=== PATIENT | male | born 1985 | race Hispanic/Latino ===

== ENCOUNTER 2022-10-13 10:50 | Inpatient (IN) | payer SELFPAY ==
[2022-10-13 11:32] LABS: Hemoglobin 13.8 g/dL (14.0-18.0); Mean Corpuscular HGB CONC 34.9 g/dL (32.0-36.0); Mean Corpuscular Hemoglobin 32.9 pg (27.0-31.0); Mean Corpuscular Volume 94.1 fl (78.0-98.0); Mean Platelet Volume 7.8 fL (7.4-10.4); Platelet Count 201 10x3/uL (130-400); RBC Distribution Width 10.8 % (11.5-14.5); White Blood Cell (WBC) Count 14.9 10x3/uL (4.8-10.8)
[2022-10-13 11:43] LABS: ALT (SGPT) 18 U/L (8-55); AST (SGOT) 22 U/L (5-34); Albumin 4.1 g/dL (3.5-5.0); Alkaline Phosphatase 73 U/L (40-110); Anion Gap 12 mmol/L (10-20); BUN (Urea Nitrogen) 15 mg/dL (8.9-20.6); Bilirubin, Total 1.3 mg/dL (0.2-1.2); Calc. Creatinine Clearance 0 mL/min (70-130); Calcium 10.8 mg/dL (7.8-10.44); Carbon Dioxide 21 mmol/L (22-29); Chloride 101 mmol/L (98-107); Estimated GFR 62; Glucose 119 mg/dL (70-105); Lipase 28 U/L (8-78); Protein, Total 7.1 g/dL (6.0-8.3); Sodium 130 mmol/L (136-145)
[2022-10-13 11:51] LABS: Band 28 % (5-11); Lymphocytes 4 % (21-51); MDiff Complete? YES; Monocytes 7 % (0-10); Neutrophil 60 % (42-75); RBC Morphology Normal
[2022-10-13] MEDS ORDERED: Ondansetron PF 4 MG/2 ML Vial ONE ×2 (13:39→17:41)
[2022-10-13] MEDS ORDERED: HYDROmorphone 0.5 MG/0.5 ML SYRINGE ONE (13:41)
[2022-10-13 13:50] LABS: Bacteria/HPF 4+ HPF (None Seen); Bilirubin Negative (Negative); Blood, Urine 2+ (Negative); Clarity Turbid (Clear); Glucose, Urine (Dipstick) Normal (Negative); Ketone, Urine Negative (Negative); Leukocyte 500 Leu/uL (Negative); Nitrite Negative (Negative); Protein, Urine (Dipstick) 30 mg/dL (Neg-Trace); Specific Gravity, Urine 1.012 (1.002-1.036); Squamous Epithelial 0-3 HPF (0-3); Transitional Epithelial 0-3 HPF (None Seen); Urobilinogen Normal mg/dL (Less than 2); WBC/HPF Greater than 50 HPF (0-3); pH, Urine 5.5 (5.0-9.0)
[2022-10-13] MEDS ORDERED: cefTRIAXone\\ROCEPHIN 2 GM VIAL ONE (13:57)
[2022-10-13] MEDS ORDERED: Senokot S 8.6-50 MG TAB PO PRN ×2 (14:35→20:46)
[2022-10-13] MEDS ORDERED: HYDROcodone/Acetaminophen 5/325 mg Tablet PO PRN ×2 (14:35→20:46)
[2022-10-13] MEDS ORDERED: Ondansetron PF 4 MG/2 ML Vial IVP PRN ×2 (14:35→20:46)
[2022-10-13] MEDS ORDERED: Acetaminophen 325 MG TAB PO PRN (14:35)
[2022-10-13] MEDS ORDERED: Sodium Chloride 0.9% 1,000 ML IV SCH (14:45)
[2022-10-13] MEDS ORDERED: Morphine 4 MG/ML VIAL SLOW IVP PRN ×2 (14:49→20:47)
[2022-10-13] MEDS ORDERED: Acetaminophen 325 MG Suppository PR SCH (17:15)
[2022-10-13] MEDS ORDERED: Acetaminophen 650 MG Suppository PR SCH (17:15)
[2022-10-13] MEDS ORDERED: Iopamidol 30 ML ONE (17:16)
[2022-10-13] MEDS ORDERED: fentaNYL PF 100 MCG/2 ML SYRINGE ONE (17:16)
[2022-10-13] MEDS ORDERED: Lidocaine 1% PF 5 ML VIAL ONE (17:41)
[2022-10-13] MEDS ORDERED: Dexamethasone 20 MG/5 ML VIAL ONE (17:41)
[2022-10-13] MEDS ORDERED: Succinylcholine Chloride 100 MG/5 ML SYRINGE FS ONE (17:41)
[2022-10-13] MEDS ORDERED: PROPOFOL 200 MG/20 ML VIAL ONE (17:41)
[2022-10-13] MEDS ORDERED: HYDROmorphone 2 MG/ML VIAL SLOW IVP PRN (18:25)
[2022-10-13] MEDS ORDERED: Meperidine HCl/PF 25 MG/ML VIAL SLOW IVP PRN (18:25)
[2022-10-13] MEDS ORDERED: Promethazine HCl 25 MG/ML VIAL IM PRN (18:25)
[2022-10-13 20:05] VITALS: BMI 29.2
[2022-10-13] MEDS: Sodium Chloride 0.9% 1,000 ML IV SCH (20:53)
[2022-10-13] MEDS: Acetaminophen 325 MG TAB PO PRN (20:53)
[2022-10-13] MEDS: Famotidine 20 MG TAB PO SCH (20:53)
[2022-10-13] MEDS ORDERED: Famotidine 20 MG TAB PO SCH (21:00)
[2022-10-14] MEDS ORDERED: Sodium Chloride 0.9% 500 ML IV SCH (01:30)
[2022-10-14] MEDS: Sodium Chloride 0.9% 1,000 ML IV SCH ×3 (01:59→20:31)
[2022-10-14] MEDS: Famotidine 20 MG TAB PO SCH ×2 (07:46→20:30)
[2022-10-14 07:58] LABS: #Lymphocytes 0.9 thou/uL (1.20-3.40); #Monocytes 0.8 thou/uL (0.11-0.59); #Neutrophils 7.6 thou/uL (1.40-6.50); %Basophils 0.1 % (0.0-1.0); %Eosinophils 0.1 % (0.0-10.0); %Lymphocytes 9.5 % (21.0-51.0); %Monocytes 8.4 % (0.0-10.0); %Neutrophils 81.9 % (42.0-75.0); Hemoglobin 12.3 g/dL (14.0-18.0); Mean Corpuscular HGB CONC 34.2 g/dL (32.0-36.0); Mean Corpuscular Hemoglobin 33.4 pg (27.0-31.0); Mean Corpuscular Volume 97.7 fl (78.0-98.0); Mean Platelet Volume 8.6 fL (7.4-10.4); Platelet Count 170 10x3/uL (130-400); RBC Distribution Width 11.1 % (11.5-14.5); Red Blood Cell (RBC) Count 3.69 mill/uL (4.70-6.10); White Blood Cell (WBC) Count 9.2 10x3/uL (4.8-10.8)
[2022-10-14 08:03] LABS: Anion Gap 11 mmol/L (10-20); BUN (Urea Nitrogen) 14 mg/dL (8.9-20.6); Calc. Creatinine Clearance 121 mL/min (70-130); Calcium 10.1 mg/dL (7.8-10.44); Carbon Dioxide 21 mmol/L (22-29); Chloride 110 mmol/L (98-107); Estimated GFR 95; Glucose 138 mg/dL (70-105); Potassium 4.6 mmol/L (3.5-5.1); Sodium 137 mmol/L (136-145)
[2022-10-14] MEDS ORDERED: cefTRIAXone\\ROCEPHIN 2 GM in Sodium Chloride 0.9% 100 ML IVPB SCH (14:00)
[2022-10-14] MEDS: Phenazopyridine HCl 100 MG TAB PO SCH (17:49)
[2022-10-14] MEDS: Oxybutynin 5 MG TAB PO SCH (20:30)
[2022-10-14] MEDS ORDERED: Meropenem 1 GM in Sodium Chloride 0.9% 100 ML IVPB SCH (22:00)
[2022-10-15] MEDS: Sodium Chloride 0.9% 1,000 ML IV SCH ×3 (05:33→20:34)
[2022-10-15] MEDS: Meropenem 1 GM in Sodium Chloride 0.9% 100 ML IVPB SCH ×3 (05:34→22:22)
[2022-10-15 07:31] LABS: #Lymphocytes 1.3 thou/uL (1.20-3.40); #Monocytes 0.8 thou/uL (0.11-0.59); #Neutrophils 6.8 thou/uL (1.40-6.50); %Basophils 0.2 % (0.0-1.0); %Eosinophils 0.1 % (0.0-10.0); %Lymphocytes 14.6 % (21.0-51.0); %Monocytes 8.6 % (0.0-10.0); %Neutrophils 76.6 % (42.0-75.0); Hemoglobin 12.1 g/dL (14.0-18.0); Mean Corpuscular HGB CONC 34.2 g/dL (32.0-36.0); Mean Corpuscular Hemoglobin 33.3 pg (27.0-31.0); Mean Corpuscular Volume 97.4 fl (78.0-98.0); Mean Platelet Volume 8.4 fL (7.4-10.4); Platelet Count 187 10x3/uL (130-400); RBC Distribution Width 11.1 % (11.5-14.5); Red Blood Cell (RBC) Count 3.62 mill/uL (4.70-6.10); White Blood Cell (WBC) Count 8.9 10x3/uL (4.8-10.8)
[2022-10-15] MEDS: Oxybutynin 5 MG TAB PO SCH ×2 (07:51→20:34)
[2022-10-15] MEDS: Famotidine 20 MG TAB PO SCH ×2 (07:51→20:34)
[2022-10-15] MEDS: Phenazopyridine HCl 100 MG TAB PO SCH ×3 (07:51→17:59)
[2022-10-15 08:02] LABS: Anion Gap 10 mmol/L (10-20); BUN (Urea Nitrogen) 13 mg/dL (8.9-20.6); Calc. Creatinine Clearance 133 mL/min (70-130); Calcium 10.2 mg/dL (7.8-10.44); Carbon Dioxide 23 mmol/L (22-29); Chloride 109 mmol/L (98-107); Estimated GFR 106; Glucose 100 mg/dL (70-105); Potassium 3.9 mmol/L (3.5-5.1); Sodium 138 mmol/L (136-145)
[2022-10-15] MEDS: Acetaminophen 325 MG TAB PO PRN (19:41)
[2022-10-16] MEDS: Acetaminophen 325 MG TAB PO PRN (04:31)
[2022-10-16] MEDS: Sodium Chloride 0.9% 1,000 ML IV SCH ×3 (04:31→20:45)
[2022-10-16] MEDS: Meropenem 1 GM in Sodium Chloride 0.9% 100 ML IVPB SCH ×3 (05:09→22:59)
[2022-10-16] MEDS: Famotidine 20 MG TAB PO SCH ×2 (08:54→20:45)
[2022-10-16] MEDS: Oxybutynin 5 MG TAB PO SCH ×2 (08:54→20:45)
[2022-10-16] MEDS: Phenazopyridine HCl 100 MG TAB PO SCH ×3 (08:54→17:17)
[2022-10-16] MEDS ORDERED: FLU VACC QS2022-23(6MOS UP)/PF 60 MCG/0.5 ML SYRINGE IM ONE (09:00)
[2022-10-17] MEDS: Sodium Chloride 0.9% 1,000 ML IV SCH ×3 (03:36→20:52)
[2022-10-17 08:06] LABS: #Eosinphils 0.1 thou/uL (0.0-0.7); #Lymphocytes 1.5 thou/uL (1.20-3.40); #Monocytes 0.6 thou/uL (0.11-0.59); #Neutrophils 2.7 thou/uL (1.40-6.50); %Basophils 0.7 % (0.0-1.0); %Eosinophils 1.3 % (0.0-10.0); %Lymphocytes 30.4 % (21.0-51.0); %Monocytes 11.7 % (0.0-10.0); Hemoglobin 12.8 g/dL (14.0-18.0); Mean Corpuscular HGB CONC 33.4 g/dL (32.0-36.0); Mean Corpuscular Hemoglobin 32.6 pg (27.0-31.0); Mean Corpuscular Volume 97.7 fl (78.0-98.0); Mean Platelet Volume 7.6 fL (7.4-10.4); Platelet Count 214 10x3/uL (130-400); RBC Distribution Width 11.2 % (11.5-14.5); Red Blood Cell (RBC) Count 3.92 mill/uL (4.70-6.10); White Blood Cell (WBC) Count 4.9 10x3/uL (4.8-10.8)
[2022-10-17 08:26] LABS: Anion Gap 10 mmol/L (10-20); BUN (Urea Nitrogen) 9 mg/dL (8.9-20.6); Calc. Creatinine Clearance 137 mL/min (70-130); Calcium 10.3 mg/dL (7.8-10.44); Carbon Dioxide 24 mmol/L (22-29); Chloride 107 mmol/L (98-107); Estimated GFR 111; Glucose 101 mg/dL (70-105); Potassium 4.2 mmol/L (3.5-5.1); Sodium 137 mmol/L (136-145)
[2022-10-17] MEDS: Oxybutynin 5 MG TAB PO SCH ×2 (08:47→20:13)
[2022-10-17] MEDS: Phenazopyridine HCl 100 MG TAB PO SCH ×3 (08:47→17:28)
[2022-10-17] MEDS: Famotidine 20 MG TAB PO SCH ×2 (08:47→20:13)
[2022-10-17] MEDS: Meropenem 1 GM in Sodium Chloride 0.9% 100 ML IVPB SCH ×3 (09:23→22:11)
[2022-10-17] MEDS: Acetaminophen 325 MG TAB PO PRN (20:13)
[2022-10-18] MEDS: Sodium Chloride 0.9% 1,000 ML IV SCH ×2 (04:53→17:19)
[2022-10-18] MEDS: Meropenem 1 GM in Sodium Chloride 0.9% 100 ML IVPB SCH ×3 (05:21→21:10)
[2022-10-18 06:58] LABS: Anion Gap 8 mmol/L (10-20); BUN (Urea Nitrogen) 10 mg/dL (8.9-20.6); Calc. Creatinine Clearance 154 mL/min (70-130); Calcium 10.2 mg/dL (7.8-10.44); Carbon Dioxide 27 mmol/L (22-29); Chloride 108 mmol/L (98-107); Estimated GFR 117; Glucose 96 mg/dL (70-105); Potassium 4.6 mmol/L (3.5-5.1); Sodium 138 mmol/L (136-145)
[2022-10-18 07:00] LABS: Hemoglobin 12.8 g/dL (14.0-18.0); Mean Corpuscular HGB CONC 34.2 g/dL (32.0-36.0); Mean Corpuscular Hemoglobin 33.2 pg (27.0-31.0); Mean Corpuscular Volume 97.1 fl (78.0-98.0); Mean Platelet Volume 7.8 fL (7.4-10.4); Platelet Count 224 10x3/uL (130-400); RBC Distribution Width 11.3 % (11.5-14.5); Red Blood Cell (RBC) Count 3.84 mill/uL (4.70-6.10)
[2022-10-18] MEDS: Phenazopyridine HCl 100 MG TAB PO SCH ×3 (08:46→18:00)
[2022-10-18] MEDS: Famotidine 20 MG TAB PO SCH ×2 (08:46→21:09)
[2022-10-18] MEDS: Oxybutynin 5 MG TAB PO SCH ×2 (08:46→21:09)
[2022-10-18 09:01] LABS: Band 5 % (5-11); Lymphocytes 24 % (21-51); MDiff Complete? YES; Monocytes 17 % (0-10); Neutrophil 54 % (42-75); Platelet Morphology Comment Appears Adequate; RBC Morphology Normal
[2022-10-19] MEDS: Sodium Chloride 0.9% 1,000 ML IV SCH ×3 (01:56→16:25)
[2022-10-19] MEDS: Meropenem 1 GM in Sodium Chloride 0.9% 100 ML IVPB SCH ×2 (05:20→16:35)
[2022-10-19 07:46] LABS: #Eosinphils 0.1 thou/uL (0.0-0.7); #Monocytes 0.8 thou/uL (0.11-0.59); #Neutrophils 2.9 thou/uL (1.40-6.50); %Basophils 0.2 % (0.0-1.0); %Eosinophils 2.2 % (0.0-10.0); %Lymphocytes 33.9 % (21.0-51.0); %Monocytes 13.6 % (0.0-10.0); %Neutrophils 50.2 % (42.0-75.0); Hemoglobin 12.9 g/dL (14.0-18.0); Mean Corpuscular HGB CONC 34.3 g/dL (32.0-36.0); Mean Corpuscular Volume 96.5 fl (78.0-98.0); Mean Platelet Volume 7.6 fL (7.4-10.4); Platelet Count 271 10x3/uL (130-400); RBC Distribution Width 11.1 % (11.5-14.5); Red Blood Cell (RBC) Count 3.91 mill/uL (4.70-6.10); White Blood Cell (WBC) Count 5.8 10x3/uL (4.8-10.8)
[2022-10-19 08:09] LABS: Anion Gap 9 mmol/L (10-20); BUN (Urea Nitrogen) 10 mg/dL (8.9-20.6); Calc. Creatinine Clearance 158 mL/min (70-130); Calcium 10.1 mg/dL (7.8-10.44); Carbon Dioxide 25 mmol/L (22-29); Chloride 108 mmol/L (98-107); Estimated GFR 118; Glucose 99 mg/dL (70-105); Potassium 4.5 mmol/L (3.5-5.1); Sodium 137 mmol/L (136-145)
[2022-10-19] MEDS: Famotidine 20 MG TAB PO SCH (08:31)
[2022-10-19] MEDS: Phenazopyridine HCl 100 MG TAB PO SCH ×3 (08:31→16:35)
[2022-10-19] MEDS: Oxybutynin 5 MG TAB PO SCH (08:31)
[2022-10-19 20:00] VITALS: BP 136/74; TEMP 98.1
== END 2022-10-19 20:10 | disposition home or self-care (01) | DRG 854 ==
LOC: ERS 10:50 → T4-B 14:40 → SDC/OP 14:47 → T4-B 20:04 → OBSVTOIN 10-14 07:57
PROVIDERS: ADMIT Family Medicine; ATTEND Internal Medicine
PROC: 0T768DZ Dilation of Right Ureter with Intraluminal Device, Via Natural or Artificial Opening Endoscopic (ICD-10-PCS; principal; 2022-10-13)
PROC: 02HV33Z Insertion of Infusion Device into Superior Vena Cava, Percutaneous Approach (ICD-10-PCS; 2022-10-18)
PROC: B5181ZA Fluoroscopy of Superior Vena Cava using Low Osmolar Contrast, Guidance (ICD-10-PCS; 2022-10-18)
PROC: B548ZZA Ultrasonography of Superior Vena Cava, Guidance (ICD-10-PCS; 2022-10-18)
PROC: 3E03329 Introduction of Other Anti-infective into Peripheral Vein, Percutaneous Approach (ICD-10-PCS; 2022-10-18)
DX: A41.51 Sepsis due to Escherichia coli [E. coli] (principal); E87.1 Hypo-osmolality and hyponatremia; N13.6 Pyonephrosis; N17.9 Acute kidney failure, unspecified; Z79.899 Other long term (current) drug therapy
CPT/HCPCS: 36415; 36569; 74176; 74420; 80048; 80053; 81003; 81015; 83605; 83690; 84443; 85025; 87040; 87077; 87086; 87149; 87186; 96365; 96375; C1751; C2617; G0378; J0696; J1100; J1170; J2185; J2270; J2405; J2704; J3490; J7030; J7050; Q9967

== ENCOUNTER 2022-10-22 11:24 | Outpatient (CLI) | payer SELFPAY ==
[2022-10-22 12:32] LABS: Clarity Clear (Clear); Leukocyte Unable to Interpret (Negative); Nitrite Unable to Interpret (Negative)
[2022-10-22 12:33] LABS: Bilirubin Unable to Interpret (Negative); Blood, Urine Unable to Interpret (Negative); Glucose, Urine (Dipstick) Unable to Interpret mg/dL (Negative); Ketone, Urine Unable to Interpret mg/dL (Negative); Protein, Urine (Dipstick) Unable to Interpret mg/dl (Neg-Trace); Urobilinogen UNABLE TO INTERPRET mg/dL (Less than 2)
[2022-10-22 12:41] LABS: Specific Gravity, Urine 1.025 (1.005-1.030)
[2022-10-22 13:01] LABS: WBC/HPF 0-3 HPF (0-3)
[2022-10-22 13:02] LABS: Bacteria/HPF None Seen HPF (None Seen); Squamous Epithelial 0-3 HPF (0-3)
== END 2022-10-22 11:25 | disposition home or self-care (01) ==
LOC: LABBT 11:24
PROVIDERS: ATTEND Urology
DX: Z01.818 Encounter for other preprocedural examination (principal); N20.1 Calculus of ureter
CPT/HCPCS: 81001; 87086; 93005; 93010

== ENCOUNTER 2022-10-28 08:45 | Day surgery (SDC) | payer SELFPAY ==
[2022-10-27 09:34] VITALS: BMI 27.7
[2022-10-28] MEDS ORDERED: Fentanyl 100 MCG/2 ML VIAL ONE (14:38)
[2022-10-28] MEDS ORDERED: Levofloxacin 500 mg/D5W 100 ml Premix Bag ONE (14:52)
[2022-10-28] MEDS ORDERED: Piperacillin/Tazobactam 3.375 GM VIAL ONE (14:54)
[2022-10-28] MEDS ORDERED: Sodium Chloride 0.9% 100 ML ONE (14:54)
[2022-10-28] MEDS ORDERED: Ondansetron PF 4 MG/2 ML Vial ONE (15:08)
[2022-10-28] MEDS ORDERED: Glycopyrrolate 0.2 MG/ML 5 ML SYRINGE ONE (15:08)
[2022-10-28] MEDS ORDERED: PROPOFOL 200 MG/20 ML VIAL ONE (15:08)
[2022-10-28] MEDS ORDERED: Dexamethasone 20 MG/5 ML VIAL ONE (15:08)
[2022-10-28] MEDS ORDERED: Ketorolac Tromethamine 30 MG/ML VIAL ONE (15:08)
[2022-10-28] MEDS ORDERED: Lidocaine 1% PF 5 ML VIAL ONE (15:08)
[2022-10-28] MEDS ORDERED: Oxybutynin 5 MG TAB ONE (16:07)
== END 2022-10-28 18:55 | disposition home or self-care (01) ==
LOC: SDC 08:45
PROVIDERS: ATTEND Urology
PROC: 0T768DZ Dilation of Right Ureter with Intraluminal Device, Via Natural or Artificial Opening Endoscopic (ICD-10-PCS; principal; 2022-10-28)
PROC: 0TC68ZZ Extirpation of Matter from Right Ureter, Via Natural or Artificial Opening Endoscopic (ICD-10-PCS; principal; 2022-10-28)
DX: N20.1 Calculus of ureter (principal); Z79.899 Other long term (current) drug therapy
CPT/HCPCS: 74420; 82365; 88300; C1747; C1769; C2617; J1100; J1885; J1956; J2405; J2543; J2704; J3010; J3490